=== PATIENT | male | born 1975 | race Caucasian/White ===

== ENCOUNTER 2020-04-19 08:00 | Outpatient (CLI) | payer OTHER ==
[~2020-04-19] VITALS: Ht 188 cm; Wt 93.1 kg
[~2020-04-19 08:00] MED LIST: OMEP20TA62 PO
== END 2020-04-19 23:59 | disposition home or self-care (01) ==
LOC: OUT 08:00 → EDSTATUS 04-23 12:30
PROVIDERS: ATTEND Neurological Surgery
DX: Z01.818 Encounter for other preprocedural examination (principal); Z11.59 Encounter for screening for other viral diseases; M43.16 Spondylolisthesis, lumbar region; M47.896 Other spondylosis, lumbar region; M51.26 Other intervertebral disc displacement, lumbar region; M54.16 Radiculopathy, lumbar region
CPT/HCPCS: 36415; 87635